=== PATIENT | male | born 1960 | race Caucasian/White ===

== ENCOUNTER 2016-07-26 12:35 | Emergency (ER) | payer OTHER ==
[~2016-07-26] VITALS: Ht 177.8 cm; Wt 112.6 kg
[~2016-07-26 12:35] MED LIST: HYDROCHLOROTHIA25 MG; NEXIUM40 MG PO
[2016-07-26] MEDS ORDERED: KEFLEX500 MG PO (16:10)
[2016-07-26] MEDS ORDERED: MOTRIN800 MG PO (16:11)
[2016-07-26 16:21] VITALS: BP 140/93
== END 2016-07-26 16:19 | disposition home or self-care (01) ==
LOC: EME 12:35
DX: S61.214A Laceration without foreign body of right ring finger without damage to nail, initial encounter (principal); W27.8XXA Contact with other nonpowered hand tool, initial encounter; I10 Essential (primary) hypertension
CPT/HCPCS: 99281; 99284